=== PATIENT | female | born 1965 | race Caucasian/White ===

== ENCOUNTER 2018-10-20 08:30 | Emergency (ER) | payer MEDICAID ==
[~2018-10-20] VITALS: Ht 177.8 cm; Wt 88.1 kg
[~2018-10-20 08:30] MED LIST: FLUT16SP2 NS; GUAI120015 PO; IBUP-1985 PO; LEVA15HF4 IH; NO HOME MEDS; PSEU-259 PO
[2018-10-20 08:33] VITALS: BP 120/62
--- NOTE | 2018-10-20 08:42 | NUR ---
PATIENT TO ER #14 WITH C/O left knee pain x 1 year. TAKING IBUPROFEN FOR PAIN. RATES PAIN 10/10. PAIN FLARED UP X ONE WEEK. PATIENT NOW UNABLE TO STRAIGHTEN LEG.
[2018-10-20] MEDS ORDERED: HYDR-3965 PO (09:30)
[2018-10-20] MEDS ORDERED: HYDROcodone/acetaminophen 5mg/325mg tablet PO ONE (09:30)
[2018-10-20] MEDS ORDERED: ketorolac trometh. 30mg/ml inj. IM ONE (09:30)
== END 2018-10-20 10:42 | disposition home or self-care (01) ==
LOC: ER 08:30
DX: S83.8X2A Sprain of other specified parts of left knee, initial encounter (principal); J45.909 Unspecified asthma, uncomplicated; G89.29 Other chronic pain; Z98.890 Other specified postprocedural states; Z79.899 Other long term (current) drug therapy; X58.XXXA Exposure to other specified factors, initial encounter; Y93.89 Activity, other specified; Y92.89 Other specified places as the place of occurrence of the external cause; Y99.8 Other external cause status
CPT/HCPCS: 29530; 73564; 96372; 99283; J1885

== ENCOUNTER 2022-11-16 07:09 | Emergency (ER) | payer MEDICAID ==
[~2022-11-16] VITALS: Ht 177.8 cm; Wt 90.0 kg
[2022-11-16 07:13] VITALS: BP 118/74
[2022-11-16] MEDS ORDERED: mupirocin 2% ointment 22GM TP STA (09:08)
[2022-11-16] MEDS ORDERED: MUPI22OI30 TOP (09:28)
== END 2022-11-16 09:41 | disposition home or self-care (01) ==
LOC: ER 07:09
DX: T21.02XA Burn of unspecified degree of abdominal wall, initial encounter (principal); X08.8XXA Exposure to other specified smoke, fire and flames, initial encounter; Y93.89 Activity, other specified; Y92.89 Other specified places as the place of occurrence of the external cause; Y99.8 Other external cause status; J45.909 Unspecified asthma, uncomplicated; Z79.899 Other long term (current) drug therapy
CPT/HCPCS: 99284; A6258; A6449